=== PATIENT | female | born 1945 | race Caucasian/White ===

== ENCOUNTER 2025-07-10 19:21 | Inpatient (IN) | payer MEDICARE, OTHER, SELFPAY ==
[2025-07-10] VITALS (7 sets, daily range): BP systolic 94–135; BP diastolic 52–63; BMI 33.4
[2025-07-10 14:59] LABS: Hematocrit 40.9 % (37.0-47.0); Hemoglobin 14.0 g/dL (12.0-16.0); Mean Corp Hgb Conc. 34.2 g/dL (33.0-37.0); Mean Corpuscular Volume 89.7 fL (81.0-99.0); Nucleated Red Blood Cells % 0 %; Platelet Count 261 10^3/uL (130-400); Red Cell Dist. Width 12.5 % (11.5-14.5)
[2025-07-10 15:24] LABS: ALT (SGPT) 31 U/L (0-35); AST (SGOT) 46 U/L (14-36); Albumin 3.6 g/dl (3.5-5.0); Alkaline Phosphatase 203 U/L (38-126); Blood Urea Nitrogen 17 mg/dl (7-17); Calcium 9.1 mg/dl (8.4-10.2); Carbon Dioxide 24 mmol/L (22-30); Chloride 105 mmol/L (98-107); Glucose 170 mg/dl (70-99); Lipase 45 U/L (23-300); Potassium 3.7 mmol/L (3.5-5.1); Sodium 137 mmol/L (135-145); Total Protein 6.6 g/dl (6.3-8.2); eGFR > 60.00
--- NOTE | 2025-07-10 16:59 | ED.GENMED ---
History of Present Illness
<CLARENCE Cabrales - Last Filed: 07/10/25 23:41>
General
Chief Complaint: Fatigue
Source: patient
Exam Limitations: none
Time Seen by Provider: 07/10/25 16:52
Nursing documentation reviewed up to this point in time: agreed with
History of Present Illness
History of Present Illness:
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 She has had low-grade fevers as high as 101.3.
She denies any cough URI. She feels very sleepy and weak. She has had some small amounts of vomiting. No other sick contacts at home. She denies any abdominal pain.
Phy Exam
<CLARENCE Cabrales - Last Filed: 07/10/25 23:41>
General Physical Exam
General Presentation: no apparent distress
General age: appears stated age
General Skin: warm and dry
General Habitus: normal
General Mental: alert
General Hydration: appears well hydrated
Cardiovascular Exam
Cardiovascular Exam: regular rate/rhythm, no murmur and normal peripheral pulses
Pulmonary Exam
Pulmonary Exam: no respiratory distress and other (+ crackles b/l bases )
Gastrointestinal Exam
Gastrointestinal Exam: soft and other (tender ruq )
Neurological Exam
Neurological Exam: alert and oriented x3
Musculoskeletal Exam
Musculoskeletal Exam: full ROM
Skin Exam
Skin Exam: normal color and warm/dry
Psychiatric Exam
Psychiatric Exam: normal mood/affect
Course
<CLARENCE Cabrales - Last Filed: 07/10/25 23:41>
Orders/Labs/Results
Orders:
Orders
07/10/25 14:54
Complete Blood Count/With Diff Urgent
Comprehensive Metabolic Panel Urgent
Lipase Urgent
07/10/25 17:27
0.9% Sodium Chloride 500 ml [Nss] 500 ml IV BOLUS
07/10/25 17:50
COVID-19 Antigen Urgent
Source: Nasal Swab
UA Reflex to Culture [Urinalysis Reflex To Culture] Urgent
Date Specimen was Collected: 07/10/25
Time Specimen was Collected: 17:31
Urine Microscopic Reflex Cult Urgent
Influenza A+B Rapid Molecular Urgent
JOMAR Source: Nasal Swab
Specimen Description:
Urine Culture Urgent
JOMAR Source: U
Specimen Description:
Date Specimen was Collected: 07/10/25
Time Specimen was Collected: 17:31
07/10/25 17:58
Chest [CR Chest - 2 Views ] Urgent
Comment:
Reason For Exam: fever /weak/crackles b/l bases
07/10/25 18:56
CefTRIAXone [Rocephin] 1,000 mg IV NOW STA
07/10/25 19:06
Sterile Water [Sterile Water For Injection] 20 ml .ROUTE .STK-MED
07/10/25 19:10
Admit/Transfer Patient As Directed
Co-Sign Provider:
Level of Care: Inpatient admission
Assign to:: Medical/Surgical
Physician / Group: Snow
Diagnosis: Pyelonephritis
Reason for Hospitalization: Pyelonephritis
Expected length of stay greater than two midnights?: Yes
ELOS- Estimated Length of Stay in days: 2
I certify the patient meets the requirements for IP care: Yes
Code Status As Directed
Resuscitation Status: Full Code
PRN Pain Medication Management As Directed
May give lesser potent ordered pain med per pt: Yes
preference::
Protocol:: Medication orders for pain may be administered in a
manner that supports deferring to patient preference
when the pt is:
- Requesting an ordered lesser potent pain medication.
Least to most potent pain medications are defined
as: acetaminophen < NSAID < tramadol < opioids
(morphine, oxycodone, hydromorphone).
- Requesting a lesser dose of the same medication IF
ORDERED.
- Requesting a less intrusive route of administration
if both routes are prescribed by the provider (PO <
IV).
07/10/25 19:15
US Abdomen Complete/Upper Urgent
Comment:
Reason For Exam: upper abd pain /n/v /fever
07/10/25 21:21
Acetaminophen [Tylenol] 650 mg PO Q4HPRN PRN
07/10/25 22:58
Bisacodyl [Dulcolax] 10 mg RECTAL [id number] PRN
Docusate W/Senna [Senokot-S] 1 tablet PO BIDPRN PRN
Ondansetron Injectable [Zofran] 4 mg IV Q6HPRN PRN
Polyethylene Glycol Powder [Miralax] 17 grams PO DAILYPRN PRN
07/10/25 22:58
Activity As Directed
Activity Level: With Assistance
Vital Signs As Directed
Frequency: Per unit guidelines
Pulse Ox/spot Check [RESP] Routine
Quantity: 1
Pt Eval And Treat Routine
Activity Level: With Assistance
DX Deep Vein Thrombosis Video Routine
07/11/25 06:00
Complete Blood Count/No Diff IN AM
07/11/25 18:00
CefTRIAXone [Rocephin] 1,000 mg IV Q24H
Enoxaparin Sodium [Lovenox] 40 mg SC QPM
Abnormal Lab Results
07/10/25 07/10/25
14:54 17:50
WBC 17.9 H 10^3/uL
(4.8-10.8)
MPV 10.9 H fL
(7.4-10.4)
Abs Immat Gran (auto) 0.1 H 10^3/uL
(0-0.05)
Absolute Neuts (auto) 15.7 H 10^3/uL
(1.4-6.5)
Absolute Lymphs (auto) 0.8 L 10^3/uL
(1.2-3.4)
Absolute Monos (auto) 1.1 H 10^3/uL
(0.1-0.6)
Neutrophils % 87.3 H %
(42.2-75.2)
Lymphocytes % 4.4 L %
(20.5-51.1)
Glucose 170 H mg/dl
(70-99)
Total Bilirubin 2.0 H mg/dl
(0.2-1.3)
AST 46 H U/L
(14-36)
Alkaline Phosphatase 203 H U/L
(38-126)
Urine Ketones 3+ A
(Negative)
Ur Occult Blood Reflex 4+ A
(Negative)
Urine Bilirubin 1+ A
(Negative)
Urine Urobilinogen 3+ A
(Neg - 1+)
Leukocyte Esterase Rfl 2+ A
(Negative)
Urine RBC 3-6 A /HPF
(0-2)
Urine WBC (Reflex) 21-25 A /HPF
(0-5)
Urine Bacteria (Reflex) Moderate A
(Negative)
Urine Albumin (Reflex) 3+ A
(Neg - Trace)
07/10/25 14:54
07/10/25 14:54
Vital Signs
Initial and Last Documented VS:
Initial Vital Signs
Temp Pulse Resp BP Pulse Ox
98.1 F 87 18 102/61 91
07/10/25 14:40 07/10/25 14:40 07/10/25 14:40 07/10/25 14:40 07/10/25 14:40
Last Documented Vital Signs
Temp Pulse Resp BP Pulse Ox
98.4 F 76 16 135/63 93
07/10/25 23:15 07/10/25 23:15 07/10/25 23:15 07/10/25 23:15 07/10/25 23:15
Cold Rolling Supervisor consulted with Physician
Cold Rolling Supervisor consulted with physician?: Yes
Name of Physician Consulted: DR Mckeon
<Clive Mckeon MD - Last Filed: 07/11/25 00:43>
Orders/Labs/Results
Orders:
Orders
07/10/25 14:54
Complete Blood Count/With Diff Urgent
Comprehensive Metabolic Panel Urgent
Lipase Urgent
07/10/25 17:27
0.9% Sodium Chloride 500 ml [Nss] 500 ml IV BOLUS
07/10/25 17:50
COVID-19 Antigen Urgent
Source: Nasal Swab
UA Reflex to Culture [Urinalysis Reflex To Culture] Urgent
Date Specimen was Collected: 07/10/25
Time Specimen was Collected: 17:31
Urine Microscopic Reflex Cult Urgent
Influenza A+B Rapid Molecular Urgent
JOMAR Source: Nasal Swab
Specimen Description:
Urine Culture Urgent
JOMAR Source: U
Specimen Description:
Date Specimen was Collected: 07/10/25
Time Specimen was Collected: 17:31
07/10/25 17:58
Chest [CR Chest - 2 Views ] Urgent
Comment:
Reason For Exam: fever /weak/crackles b/l bases
07/10/25 18:56
CefTRIAXone [Rocephin] 1,000 mg IV NOW STA
07/10/25 19:06
Sterile Water [Sterile Water For Injection] 20 ml .ROUTE .STK-MED
07/10/25 19:10
Admit/Transfer Patient As Directed
Co-Sign Provider:
Level of Care: Inpatient admission
Assign to:: Medical/Surgical
Physician / Group: Snow
Diagnosis: Pyelonephritis
Reason for Hospitalization: Pyelonephritis
Expected length of stay greater than two midnights?: Yes
ELOS- Estimated Length of Stay in days: 2
I certify the patient meets the requirements for IP care: Yes
Code Status As Directed
Resuscitation Status: Full Code
PRN Pain Medication Management As Directed
May give lesser potent ordered pain med per pt: Yes
preference::
Protocol:: Medication orders for pain may be administered in a
manner that supports deferring to patient preference
when the pt is:
- Requesting an ordered lesser potent pain medication.
Least to most potent pain medications are defined
as: acetaminophen < NSAID < tramadol < opioids
(morphine, oxycodone, hydromorphone).
- Requesting a lesser dose of the same medication IF
ORDERED.
- Requesting a less intrusive route of administration
if both routes are prescribed by the provider (PO <
IV).
07/10/25 19:15
US Abdomen Complete/Upper Urgent
Comment:
Reason For Exam: upper abd pain /n/v /fever
07/10/25 21:21
Acetaminophen [Tylenol] 650 mg PO Q4HPRN PRN
07/10/25 22:58
Bisacodyl [Dulcolax] 10 mg RECTAL [id number] PRN
Docusate W/Senna [Senokot-S] 1 tablet PO BIDPRN PRN
Ondansetron Injectable [Zofran] 4 mg IV Q6HPRN PRN
Polyethylene Glycol Powder [Miralax] 17 grams PO DAILYPRN PRN
07/10/25 22:58
Activity As Directed
Activity Level: With Assistance
Vital Signs As Directed
Frequency: Per unit guidelines
Pulse Ox/spot Check [RESP] Routine
Quantity: 1
Pt Eval And Treat Routine
Activity Level: With Assistance
DX Deep Vein Thrombosis Video Routine
07/11/25 06:00
Complete Blood Count/No Diff IN AM
07/11/25 18:00
CefTRIAXone [Rocephin] 1,000 mg IV Q24H
Enoxaparin Sodium [Lovenox] 40 mg SC QPM
Abnormal Lab Results
07/10/25 07/10/25
14:54 17:50
WBC 17.9 H 10^3/uL
(4.8-10.8)
MPV 10.9 H fL
(7.4-10.4)
Abs Immat Gran (auto) 0.1 H 10^3/uL
(0-0.05)
Absolute Neuts (auto) 15.7 H 10^3/uL
(1.4-6.5)
Absolute Lymphs (auto) 0.8 L 10^3/uL
(1.2-3.4)
Absolute Monos (auto) 1.1 H 10^3/uL
(0.1-0.6)
Neutrophils % 87.3 H %
(42.2-75.2)
Lymphocytes % 4.4 L %
(20.5-51.1)
Glucose 170 H mg/dl
(70-99)
Total Bilirubin 2.0 H mg/dl
(0.2-1.3)
AST 46 H U/L
(14-36)
Alkaline Phosphatase 203 H U/L
(38-126)
Urine Ketones 3+ A
(Negative)
Ur Occult Blood Reflex 4+ A
(Negative)
Urine Bilirubin 1+ A
(Negative)
Urine Urobilinogen 3+ A
(Neg - 1+)
Leukocyte Esterase Rfl 2+ A
(Negative)
Urine RBC 3-6 A /HPF
(0-2)
Urine WBC (Reflex) 21-25 A /HPF
(0-5)
Urine Bacteria (Reflex) Moderate A
(Negative)
Urine Albumin (Reflex) 3+ A
(Neg - Trace)
07/10/25 14:54
07/10/25 14:54
Vital Signs
Initial and Last Documented VS:
Initial Vital Signs
Temp Pulse Resp BP Pulse Ox
98.1 F 87 18 102/61 91
07/10/25 14:40 07/10/25 14:40 07/10/25 14:40 07/10/25 14:40 07/10/25 14:40
Last Documented Vital Signs
Temp Pulse Resp BP Pulse Ox
98.4 F 76 16 135/63 93
07/10/25 23:15 07/10/25 23:15 07/10/25 23:15 07/10/25 23:15 07/10/25 23:15
<CLARENCE Cabrales - Last Filed: 07/10/25 23:41>
MDM/Problems Addressed
Differential Diagnosis Includes:
Not limited to viral syndrome, COVID influenza UTI pneumonia
MDM/Problems Addressed:
Patient is a 80-year-old female who presents for 4 days of intermittent weakness low-grade temperature of 101.3 intermittent nausea and vomiting. She denies any UTI symptoms however urine does appear infected. She has no URI symptoms COVID is
negative. She is slight crackles at bases however x-ray does read for atelectasis. No history of CHF. Her sugar is mildly elevated likely reactive. Her white count is mildly elevated along with her bilirubin AST and alk phosphatase. She denies
any abdominal pain during history however on exam she is tender in the right upper quadrant with fever nausea and vomiting and elevated LFTs will order ultrasound. no UTI s/s however urine does appear infected. Patient was evaluated by ED
physician.
will admit for hydration and antibiotics. US ordered and pending.
2330: Ultrasound concerning for acute cholecystitis. Admitting hospitalist made aware surgery made aware via [facility] text. IV Unasyn ordered as discussed with admitting hospitalist. Nurses on floor made aware by [facility] NURSE.
Chronic conditions affecting care:
Hyperlipidemia SVT
<CLARENCE Cabrales - Last Filed: 07/10/25 23:41>
*Radiology
Radiology exam reviewed: radiology read reviewed
*Pulse Oximetry
SaO2: 100
Oxygen Mode of Delivery: Room air
Patient hypoxic: no
*Critical Care Note
Total Time (30-74mins, 75-104mins- exclusive of procedures): Not Applicable
ED Attending Note
<CLARENCE Cabrales - Last Filed: 07/10/25 23:41>
-
Portions of this chart may have been created with voice recognition software.� Occasional wrong word or��sound alike� substitutions may have occurred due to the inherent limitations of voice recognition software.
<Clive Mckeon MD - Last Filed: 07/11/25 00:43>
ED Attending Note
Patient seen and examined by attending physician: Yes
ED Attending Note:
Patient presents to ED secondary to 4-day history of persistent vomiting, along with fever (101). Denies coughing. Denies chest pain. Denies shortness of breath. Denies diarrhea. Denies abdominal pain. Denies back pain. Denies urinary
frequency or urgency. Patient states that her friend is currently 'sick' and not feeling well. She is currently visiting her daughter from out of state.
Physical Exam
General: mild distress, not acutely ill. afebrile
Head: nc/at. eomi
Neck: supple. no meningeal signs.
Heart: s1/s2 regular rate and rhythm
Lungs: no acute respiratory distress. clear bilaterally
Abdomen: normal bowel sounds. mild epigastric/RUQ tenderness to palpation
Neuro: alert and oriented x 3. no focal neurological deficits
Skin: no rash
Psychiatric: well kept. interactive and cooperative
Extremities: no edema. no calf tenderness.
Blood work reviewed and discussed with patient. In light of abnormal LFTs along with upper abdominal pain, will obtain abdominal US to evaluate for potential biliary etiology
Ultrasound report noted. Admitting hospitalist made aware, including need for antibiotics and surgery/GI consultation.
Discharge Plan
Departure
Patient Disposition: Admit
Date of Disposition: 07/10/25
Time of Disposition: 18:58
Admit to doctor: hospitalist
Presentation/result/management discussed w/ accepting MD/DO: Hospitalist
Patient with high blood pressure during this ER visit?: No
Condition: Fair
Covid-19: Not Applicable
Discharge Problem:
Weakness, Acute UTI, Acute cholecystitis
Interventions
Interventions:
*Risk Screen - Suicide Last Done: 07/10/25 14:40
*General Assessment Last Done: 07/10/25 14:40
*Neglect/Abuse Screening Last Done: 07/10/25 17:29
*ED- Fall Risk Assessment Last Done: 07/10/25 17:29
*ED COVID-19 Vaccine History Last Done: 07/10/25 17:29
*Nursing Disposition Last Done: 07/10/25 23:06
Discharge Date and Time
Discharge Date/Time: 07/10/25 23:07
[2025-07-10] MEDS: NSS 500 IV (17:49)
[2025-07-10 18:04] LABS: Urine Character Slightly Cloudy (Clear)
[2025-07-10 18:16] LABS: COVID-19 Antigen Negative (Negative)
[2025-07-10 18:23] LABS: Urine White Cell 21-25 /HPF (0-5)
--- NOTE | 2025-07-10 19:05 | HPS.HSE ---
Family Physician
-
Family Physician: * NONE
Chief Complaint
-
Weakness and fatigue
History of Present Illness
This is a 80-year-old female with past medical history of hyperlipidemia and supraventricular tachycardia who presents to the emergency department with 4 days of fatigue and then 1 day of fever yesterday.
Patient is visiting from [place]. She been ingested about until 4 days ago when daughter reported that she has been feeling fatigued and weak. She has been having reduced appetite. She also has decreased stool output with constipation for the
last 2 days. Patient herself denies having any signs of UTI which she has had in the past. She denies dysuria, frequency urgency or incontinence. She denies any nausea or vomiting. She denies having any diarrhea. She denies abdominal pain.
Brought by that she complained of back pain which they initially thought. Her lumbar however patient reports that the pain is more right-sided and posterior thoracic. She reports as a constant ache without any sharp pain. She denies any shortness
of breath. She denies any URI symptoms including rhinorrhea nasal congestion sore throat headache or chest congestion.
He had a temperature of 101.3 tympanically yesterday. Resolved with Tylenol, has had low-grade temps to 99 since then. She did receive Tylenol today for generalized aches and pains secondary to her arthritis and history of bursitis.
She denies any rash. She denies any joint swelling erythema or decreased range of motion.
In the emergency department, patient was afebrile, blood pressure was 114/52 with a pulse rate of 73 and she was satting 100% on room air. Chest x-ray shows mild bibasilar opacities likely atelectasis. CBC shows a white count of 18 otherwise
unremarkable. Electrolytes BUN/creatinine were normal. UA shows positive leukocyte esterase and WBCs and bacteria but also squamous cells which could be contamination. Total bilirubin was elevated at 2.0 with AST of 46 and alk phos of 230.
Lipase was normal.
COVID test was negative. Influenza test was negative.
Medical History
Past Medical History
Past Medical History: Reports Hypercholesterolemia and Other (SVT)
Past Surgical History: Reports and Tonsilectomy
Social History
Tobacco: Non-smoker
Alcohol: None
Drug: None
Family History
Family History: Not pertinent
Allergies / Home Medications
Allergies reflects when Allergies were last updated in [employer].
Home Medications with original date entered in [employer]
Allergy/Medication List:
Allergies
Allergy/AdvReac Type Severity Reaction Status Date / Time
No Known Allergies Allergy Verified 07/10/25 14:39
Metoprolol succinate extended release 25 mg tablet, 12.5 mg p.o. twice daily
Rosuvastatin 5 mg tablet, 5 mg p.o. at bedtime
Review of Systems
-
Constitutional: Reports Fever
EENT: Reports No Symptoms
Respiratory: Reports No Symptoms
Cardiac: Reports No Symptoms
Abdomen/GI: Reports No Symptoms
: Reports No Symptoms
Musculoskeletal: Reports No Symptoms
Skin: Reports No Symptoms
Neurological: Reports No Symptoms
Endocrine: Reports No Symptoms
Hematologic/Lymphatic: Reports No Symptoms
Psych: Reports No Symptoms
Physical Exam
Vital Signs
Vital Signs
Temp Pulse Resp BP Pulse Ox
98.1 F 73 21 114/52 100
07/10/25 14:40 07/10/25 18:00 07/10/25 18:00 07/10/25 18:00 07/10/25 18:52
Physical Exam
General: Well Developed, Well Nourished and No Apparent Distress
HEENT: NormoCephalic, Moist mucous membranes and Atraumatic
Respiratory: Clear
Cardiac: S1/S2 and Regular Rhythm; No Murmur or Rub
GI: Soft, Non Distended, Normal Bowel Sounds and Tender (Right upper quadrant tenderness to palpation); No Organomegaly
Rectal: Deferred by Provider
Musculoskeletal: No Clubbing, No Cyanosis and No Edema
Skin: No Rash
Neuro: Nonfocal/grossly intact
Laboratory Results
-
07/10/25 14:54
07/10/25 14:54
Laboratory Results
Total Bilirubin 2.0 mg/dl (0.2-1.3) H 07/10/25 14:54
AST 46 U/L (14-36) H 07/10/25 14:54
ALT 31 U/L (0-35) 07/10/25 14:54
Alkaline Phosphatase 203 U/L (38-126) H 07/10/25 14:54
Lipase 45 U/L (23-300) 07/10/25 14:54
Data Reviewed
-
Diagnostic Radiology: Report Reviewed by me
Lab Data: Labs Reviewed by me
Old Records: Reviewed
Impression/Plan
-
IMPRESSION:
Generally healthy 80-year-old female here with fatigue and fever to 101.3 at home. Workup in the ED shows leukocytosis to 17.9 slight elevation in total bilirubin to 2.0 and alk phos 223. She had a chest x-ray which shows mild bibasilar opacities
felt to be atelectasis. She has no respiratory symptoms and is satting 100% on room air. On examination she did have right upper quadrant tenderness to palpation. She denies typical urinary symptoms at home and she has no findings on skin to
suggest cellulitis or joints to suggest joint infection. UA is positive at this time.
PLAN:
Fever fatigue and leukocytosis -suspect infection possibly pyelonephritis given the right sided pain but cannot rule out biliary process at this time
- admit to MedSurg
- Urine culture sent
- Blood cultures afebrile
- Right upper quadrant ultrasound
- Trend LFTs
- Diet as tolerated for now
- IV ceftriaxone
DVT PPX - lovenox sq
--- NOTE | 2025-07-10 19:08 | EDRN ---
Per verbal order of Dr. Mckeon give another 500ml of normal saline.
[2025-07-10] MEDS: ROCEPHIN 1000 MG IV (19:10)
[2025-07-10] MEDS: TYLENOL 650 MG PO (21:37)
[2025-07-11] VITALS (15 sets, daily range): BP systolic 25–123; BP diastolic 50–65; BMI 32.2
[2025-07-11] MEDS: LR 1000 IV ×2 (00:43→16:51)
[2025-07-11] MEDS: UNASYN IV ×4 (00:43→17:08)
[2025-07-11] MEDS: TOPROL XL 12.5 MG PO ×3 (00:45→21:50)
--- NOTE | 2025-07-11 01:31 | PTCARENOTE ---
Received pt from er,alert,oriented tolerated transfer well.Pt ambulated and pivoted to bed.VS taken pt is afebrile.Room air sat 93%,pt set up for her own CPAP. Pt physical assessment preformed,slight BLAIR,no cough.IVT initiated LR at 85 mls hour.Pt
sleeping after assessment .
[2025-07-11] MEDS: TYLENOL 650 MG PO (06:30)
[2025-07-11 07:43] LABS: Hematocrit 36.5 % (37.0-47.0); Hemoglobin 12.2 g/dL (12.0-16.0); Mean Corp Hgb Conc. 33.4 g/dL (33.0-37.0); Mean Corpuscular Volume 89.7 fL (81.0-99.0); Platelet Count 235 10^3/uL (130-400); Red Cell Dist. Width 12.6 % (11.5-14.5)
[2025-07-11 08:07] LABS: ALT (SGPT) 32 U/L (0-35); AST (SGOT) 38 U/L (14-36); Albumin 3.0 g/dl (3.5-5.0); Alkaline Phosphatase 254 U/L (38-126); Blood Urea Nitrogen 14 mg/dl (7-17); Calcium 8.2 mg/dl (8.4-10.2); Carbon Dioxide 25 mmol/L (22-30); Chloride 104 mmol/L (98-107); Estimated Creatinine Clearance 77 ml/min; Glucose 96 mg/dl (70-99); Potassium 3.4 mmol/L (3.5-5.1); Sodium 135 mmol/L (135-145); Total Protein 5.6 g/dl (6.3-8.2); eGFR > 60.00
--- NOTE | 2025-07-11 09:55 | CON.GS ---
Addendum entered and electronically signed by Werner De Santiago MD 07/11/25 11:08:
I saw and examined the patient independently.
The Chaplain Resident's note was reviewed and I agree with the note, assessment and plan except where noted below.
Comment: This is a 80-year-old female who presents with right upper quadrant pain and tenderness on exam. Exam, imaging, blood work all consistent with acute cholecystitis.
Will plan for laparoscopic cholecystectomy in the OR today.
N.p.o., IV fluids, IV antibiotics risks/Benefits/Alternatives, expected postoperative course and possible complications (bleeding, infection, injury to surrounding structures, acute/chronic pain) discussed at length. Patient wishes to proceed with
surgery. All questions answered. Consent obtained.
I spent 75 minutes in total for the care of this patient today including direct patient care and counseling, reviewing labs, imaging, coordination of care, as well as documentation.
Original Note:
Consultation
-
Date/Time Consultation Performed: 07/11/25914
Medical History
-
Chief Complaint: RUQ pain
History of Present Illness:
This is a 80 yo female with a h/o SVT and who resides in [place] but is visiting her daughter here in [place] who presents with reduced appetite, fatigue and right mid back pain progressing over the past few days with associated fever of
101.3 yesterday. She denies symptoms although UA was abnormal in the ED. Exam significant for RUQ tenderness present on exam. History is limited as patient is very anxious.
Past Medical History
Past Medical History: Arrhythmias (SVT) and Hypercholesterolemia
Past Surgical History: and Tonsilectomy
Social History
Tobacco: Non-Smoker
Alcohol: None
Family History
Family History: Reviewed & Not Pertinent
Allergies / Home Medications
Allergy/AdvReac Type Severity Reaction Status Date / Time
No Known Allergies Allergy Verified 07/10/25 14:39
�Medication �Instructions �Recorded �Confirmed �Type
metoprolol succinate 25 mg 12.5 mg PO BID Blood Pressure 07/10/25 07/10/25 History
tablet,extended release 24 hr
rosuvastatin 5 mg tablet 5 mg PO HS High Cholesterol 07/10/25 07/10/25 History
Review of Systems
-
History Source: Patient and Family
All other systems: Negative unless noted
A 10 point review of systems was completed, and was negative except as per HPI.
Physical Exam
Vital Signs
Temp Pulse Resp BP Pulse Ox
98.6 F 77 16 116/62 91
07/11/25 07:00 07/11/25 07:36 07/11/25 07:00 07/11/25 07:36 07/11/25 07:00
07/10/25 07/11/25 07/12/25
06:59 06:59 06:59
Actual Weight 82.5 kg
Body Mass Index (BMI) 32.2
Lab Results
07/11/25 06:52
07/11/25 06:52
WBC 15.4 10^3/uL (4.8-10.8) H 07/11/25 06:52
Hgb 12.2 g/dL (12.0-16.0) 07/11/25 06:52
Hct 36.5 % (37.0-47.0) L 07/11/25 06:52
Plt Count 235 10^3/uL (130-400) 07/11/25 06:52
Abs Immat Gran (auto) 0.1 10^3/uL (0-0.05) H 07/10/25 14:54
Neutrophils % 87.3 % (42.2-75.2) H 07/10/25 14:54
Physical Exam
General: Well Nourished
HEENT: Normocephalic
Respiratory: Non Labored Respirations
GI: Soft, Non Distended and Tender (RUQ)
Skin: Warm
Neuro: Awake, Alert and AO x 3
Psych: Other (anxious, tearful)
Data Reviewed
-
Ultrasound: Image Personally Visualized and interpreted, Report Reviewed by me, Discussed with Physician and Discussed with Patient
Labs: Labs Reviewed by me, Discussed with Physician and Discussed with Patient
Old Records: Reviewed
Assessment / Plan
-
80 yo female with a h/o SVT and who resides in [place] but is visiting her daughter here in [place] who presents with reduced appetite, fatigue and right mid back pain progressing over the past few days with associated fever of 101.3
yesterday. UA abnormal with Cx pending. Significant RUQ tenderness on exam with US imaging concerning for acute calculous cholecystitis. Leukocytosis present with wbc of 17.9 on presentation, trending down to 15.4 today on ABX. LFT's with elevated
bilirubin of 1.4 (down from 2 yesterday) with direct bilirubin of 0.5. AST and alk phos also elevated. Afebrile currently with stable vital signs.
Would recommend laparoscopic cholecystectomy with IOC. Discussed with patient and daughter. Patient agreeable to proceed.
Plan:
NPO for OR today
C/W IV ABX (Unasyn)
IVF while NPO
Medical management as per primary team
Case discussed with patient's daughter via telephone
--- NOTE | 2025-07-11 10:49 | W.PN.HOSP.TC ---
Today's Communication/Plan
-
EKG for preop eval
Placed on telemetry with a history of SVT
Continue with antibiotics
OR today per surgery
Assessment / Plan
Assessment / Plan
IMPRESSION:
Generally healthy 80-year-old female here with fatigue and fever to 101.3 at home. Workup in the ED shows leukocytosis to 17.9 slight elevation in total bilirubin to 2.0 and alk phos 223. She had a chest x-ray which shows mild bibasilar opacities
felt to be atelectasis. She has no respiratory symptoms and is satting 100% on room air. On examination she did have right upper quadrant tenderness to palpation. She denies typical urinary symptoms at home and she has no findings on skin to
suggest cellulitis or joints to suggest joint infection. UA is positive at this time.
PLAN:
Fever fatigue and leukocytosis
Also had a right upper quadrant pain and tenderness with ultrasound findings raising concern for acute cholecystitis with a gallbladder wall thickening, pericholecystic edema, gallbladder sludge, and gallstone in the neck of the gallbladder.
Abnormal LFTs noted.
Clinical concern for acute cholecytsitis.
Denies dysuria, freq of urine,
- Keep n.p.o., continue with empiric antibiotics.
- Appreciate surgical input-plan for OR today for lap cholecystectomy noted. IOC is consider intraoperatively.
- Urine culture sent
- Blood cultures pending
- Trend LFTs
- Diet as tolerated for now
- Continue ampicillin
Pancreatic head hypoechoic mass-would need MRI with contrast at some point to evaluate further.
History of SVT-continue metoprolol
Bilateral basal crackles with chest x-ray raising concern for atelectasis-clinically not concerning for pneumonia. No respiratory symptoms nor cough.
Continue with ICS.
Preop cardiac eval-patient with no clinical risk factor. METS more than 4. Check an EKG and if normal proceed with ORS planned.
Discussed with daughter at bedside
DVT PPX - lovenox sq
Total time spent on today's encounter was 52 minutes which included time spent in counseling the patient/family regarding diagnosis and treatment plan as listed above, goals of care, and symptom management. Case was discussed with nursing staff,
specialists, and care coordinators/case management. All labs and imaging personally reviewed by me. Remainder the time spent in detailed review of previous records, lab data, imaging, and other medical provider documentation.
Anticipated Discharge: 24 - 48 hours
Subjective/Interval History
-
Date of Service: July 11, 2025
Still in pain - it is now in RUQ -got intensified now.
Not SOB or having CP. No cough.
Denies prior history of UT. She has prior history of SVT on beta-yumiko.
No history of strokes. No diabetes. Non-smoker.
Can walk mile without any trouble with shortness of breath or chest pain. Independent ADLs.
She can go up a flight of stairs without SOB or CP. Does her own house work.
Objective Data
-
Labs:
Laboratory Results
07/11/25
06:52
WBC 15.4 H
Hgb 12.2
Hct 36.5 L
Plt Count 235
Sodium 135
Potassium 3.4 L
Chloride 104
Carbon Dioxide 25
BUN 14
Creatinine 0.6
Glucose 96
Calcium 8.2 L
Total Bilirubin 1.4 H
AST 38 H
ALT 32
Alkaline Phosphatase 254 H
Vital Signs:
Vital Signs
Temp Pulse Resp BP Pulse Ox
98.6 F 77 16 116/62 91
07/11/25 07:00 07/11/25 07:36 07/11/25 07:00 07/11/25 07:36 07/11/25 07:00
I&O
07/10/25 07/11/25 07/12/25
06:59 06:59 06:59
Intake Total 480 / 480
Output Total 500 / 500
Balance 480 / 480 -500 / -500
Physical Exam
-
General: Negative Comfortable (due to pain)
Respiratory: Crackles (bibasal) and Non Labored Respirations; Negative Wheezes or Accessory Resp Muscle Use
Cardiac: Regular Rhythm and S1/S2; Negative Murmur or Tachycardic
GI: Soft, Nondistended, Normal Bowel Sounds and Tender (RUQ)
Neuro: AO x 3
Psych: Calm; Negative Confused
Data Reviewed
-
Ultrasound: Report Reviewed by me (abdomen)
Labs: Labs Reviewed by me
--- NOTE | 2025-07-11 11:06 | W.SUR.PREOP ---
Pre-Operative Surgical Note
-
I have examined this patient prior to the performance of the scheduled procedure.
The patient's condition is unchanged from the time of the current History and
Physical and the patient is able to undergo the scheduled procedure.
--- NOTE | 2025-07-11 14:07 | W.PN.UPDATE ---
Update Note
Progress Note Update
Preop EKG shows sinus rhythm with elevated QRS and nonspecific T wave abnormalities.
Patient has a prior EKG from 06/25/2024 which showed nonspecific T wave changes as well. No obvious new changes or acute changes noted.
Proceed with surgery as planned.
--- NOTE | 2025-07-11 15:19 | W.IMMPOSTOP ---
Surgical Immed Post Op Note
-
Primary Surgeon: Werner De Santiago MD
Assisting Surgeon: None
Pre-op Diagnosis: Acute cholecystitis
Post-op Diagnosis: Gangrenous perforated cholecystitis, choledocholithiasis
Procedure Performed:
1. Laparoscopic cholecystectomy with cholangiogram
2. Drainage of an intra-abdominal abscess
Anesthesia Type: General
Specimen / Cultures:
1. Gallbladder and contents
2. Right upper quadrant abscess for culture
Estimated Blood Loss: 11 cc
Complications: None
Operative Findings: Markedly distended and inflamed gallbladder with thick surrounding adhesions, localized perforation of the gallbladder identified with lyn pus and spillage in the right upper quadrant which was suctioned up and cultured. The
infundibulum of the gallbladder was densely adhered to the surrounding tissues so we elected to do a top-down subtotal cholecystectomy, a very large gallstone was identified in the infundibulum and removed. The cystic duct was identified and
intubated with a cholangiocatheter and a cholangiogram was performed which showed significant amount of choledocholithiasis, not amenable to transcystic exploration/removal. The cystic duct ostium was suture-ligated closed using a 3-0 silk suture.
The remainder of the gallbladder was removed off of the fossa and the back wall was fulgurated. Floseal was applied over the surgical field and after copious irrigation, hemostasis was assured. A 19 Persian round Dong drain was introduced through
the right lateralmost port passed across the field and secured to the skin with a 2-0 nylon suture.
POST OP PLAN:
Imaging: None
Labs: Routine AM
Diet: N.p.o.
Analgesia: Tylenol 650mg q6 Bran, Dilaudid 0.5mg q2h PRN
Neuro/vascular checks: Per unit protocol
AC/AP: Hold Therapeutic AC, Ok for DVT PPx
Activity: Ad Rosalee
Wound/Incisions/Drains: Routine, THAIS to bulb suction
Abx: Continue antibiotics time 7 days
Dispo: RNF, she will need an ERCP for removal of her stones, anticipate placement of a stent given the limited ability to ligate the cystic duct.
--- NOTE | 2025-07-11 15:33 | OR.RPT ---
Operative Report
Operative Report
Patient Name: Kaleigh Johnson
: 1945
Date of Operation: 07/11/2025
Preoperative Diagnosis: Acute cholecystitis
Postoperative Diagnosis: Gangrenous perforated cholecystitis, right upper quadrant abscess, choledocholithiasis
Procedure(s):
1. Laparoscopic Cholecystectomy with Cholangiogram
2. Drainage of an intra-abdominal right upper quadrant abscess
Surgeon(s):
Dr. De Santiago
Clinical Rn Manager(s):
TAMICA Rodrigez
Anesthesia: General
Estimated Blood Loss: 11 cc
Urine Output: None
Drains/Lines/Implants: 19 Citizen [place] round Dong drain
Specimens:
1. Gallbladder and contents
2. Right upper quadrant abscess for culture
HPI/Surgical Indications:
This is a 80-year-old female visiting her family from [place] who presents with a reported 2 days of upper abdominal pain. Exam, labs and imaging are consistent with acute cholecystitis. Risks/Benefits/Alternatives were discussed at length, and
the patient agreed reluctantly to proceed with surgery.
Operative Findings: Markedly distended and inflamed gallbladder with thick surrounding adhesions, localized perforation of the gallbladder identified with lyn pus and spillage in the right upper quadrant which was suctioned up and cultured. The
infundibulum of the gallbladder was densely adhered to the surrounding tissues so we elected to do a top-down subtotal cholecystectomy, a very large gallstone was identified in the infundibulum and removed. The cystic duct was identified and
intubated with a cholangiocatheter and a cholangiogram was performed which showed significant amount of choledocholithiasis, not amenable to transcystic exploration/removal. The cystic duct ostium was suture-ligated closed using a 3-0 silk suture.
The remainder of the gallbladder was removed off of the fossa and the back wall was fulgurated. Floseal was applied over the surgical field and after copious irrigation, hemostasis was assured. A 19 [place] round Dong drain was introduced through
the right lateralmost port passed across the field and secured to the skin with a 2-0 nylon suture.
Procedure Description:
The patient was brought to the Operating Room and placed in the supine position with one arm tucked. Following uneventful induction of general endotracheal anesthesia, an orogastric tube was placed. The abdomen was prepped and draped in the usual
sterile fashion. A timeout was performed confirming the procedure, consent, and that IV antibiotics were infused and sequential compression devices were confirmed to be on. The abdomen was entered using a left subcostal Veress technique which
required a single pass followed by a 5 mm right upper quadrant Optiview trocar. Pneumoperitoneum to 15 mmHg pressure was obtained without difficulty and we confirmed that no injury had occurred during our entry. The patient was positioned in
reverse Trendelenberg and rotated with the right side up slightly. Two 5 mm trocars were then placed along the right subcostal margin, followed by a 12 mm port in the epigastrium. Initially, the gallbladder could hardly be visualized as the colon
and the surrounding fat was plastered over the gallbladder. There was significant inflammation in the right upper quadrant concerning for localized peritonitis. Carefully the tissue surrounding the gallbladder re peeled down, there was a sudden
gush of white creamy pus which was quickly suctioned up. A 4 x 4 Ray-Indio was inserted to help assist with mopping up the infected fluid. A locking grasping forceps was placed on the fundus of the gallbladder where it was then retracted cephalad and
to the right. We attempted to dissect down to the infundibulum however the scar tissue to the surrounding duodenum was significant so we elected to do a top-down cholecystectomy. Using a laparoscopic bipolar energy device the macdonald of the
gallbladder were taken down towards the infundibulum. There was a large brown stone in the infundibulum that was removed. The ostium of the cystic duct was not immediately identified but after some careful dissection a candidate was identified and
then carefully cannulated with a cholangiocatheter. A C-arm was draped and brought into the field. An intraoperative cholangiogram was performed and noted to have:
Numerous filling defects in the biliary tree
Significant biliary dilation
Nevertheless, there was flow of contrast into the duodenum
Her biliary anatomy was otherwise normal
The catheter was then removed. As the cystic duct could not be isolated elected to attempt closing it using suture. A 3-0 silk suture was used to close the ostium of the cystic duct. The remainder of the gallbladder was removed and placed into
the Endo Catch bag along with the gallstone. This and the 4 x 4 Ray-Indio were then removed. The right upper quadrant was then flooded with saline and suctioned until clear and that no visualized gallstones remained behind. A 19 [place] round Dong
drain was introduced through the right lateralmost port passed across our field and secured to the skin with a 2-0 nylon suture. Although hemostasis was achieved with the help of the LigaSure bipolar device and the back of the gallbladder wall was
fulgurated Floseal was also placed as an adjunct hemostatic agent. All remaining trocars were then removed and the pneumoperitoneum was evacuated. The 12 mm trocar site was closed using 0 PDS suture. All trocar sites were closed at the skin level
using 4-0 Monocryl followed by Dermabond. Overall, the patient tolerated the procedure well and was taken to the Recovery Room postoperatively in stable condition.
I was the attending physician and performed the procedure with assistance from the GLUED WOOD TESTER and PA student above. I was present for all portions of the case, excluding skin closure.
Werner De Santiago MD
[2025-07-11] MEDS: DILAUDID 0.25 MG IV ×2 (15:47→22:24)
--- NOTE | 2025-07-11 15:55 | CM ---
Alert awake oriented patient who lives alone and was visiting dgt and became ill. Her home is 1 story with 4 steps to enter. Pt is for surgery and will be staying with dgt locally with 4 steps to enter and can live on first floor.She has CPAP with
Air flow and uses a cane as needed.
No VN / SNF hx
Pharmacy [facility]
PCP Dr Adeline Lopez [phone] or [phone] in [facility]
PLAN Will need PT OT postop for dc planning.
[2025-07-11] MEDS: DILAUDID 0.5 MG IV (16:11)
--- NOTE | 2025-07-11 16:40 | CON.GI ---
Addendum entered and electronically signed by Ashleigh Nix MD 07/11/25 18:08:
I saw and examined the patient.
The MICROCHIP SPECIALIST's note was reviewed and I agree with the note.
Comment: This is a 80-year-old female with past medical history as listed below from [place] who was visiting her daughter locally presented to the ER yesterday with symptoms of abdominal pain and fever and was noted to have acute cholecystitis
she had cholecystectomy and drainage of intra-abdominal abscess today and IOC which showed multiple CBD stones and we were consulted for ERCP. She has mildly elevated LFTs and overall feels pretty good postop and currently has no nausea or
vomiting. On ultrasound she was also noted to have a 1.5 cm pancreatic cyst.
Assessment and plan acute cholecystitis status post cholecystectomy and drainage of intra-abdominal abscess also noted to have multiple CBD stones on IOC and also on ultrasound was noted to have 1.5 cm pancreatic cyst. Will schedule for ERCP
tomorrow with Dr. Vallejo plus or minus EUS for the pancreatic cyst or she can also follow-up with her GI in [place] for outpatient MRI with MRCP and then EUS if needed there.
Original Note:
Consultation
-
Date/Time Consultation Requested: 07/11/25 1630
Date/Time Consultation Performed: 07/11/25 1640
Requesting Provider: CLARENCE Gauthier
Performing Provider: CLARENCE River, Ashleigh Nix MD
Medical History
Chief Complaint / HPI
History of Present Illness:
Pt is a 80yo with hx SVT, hypercholesterolemia, colon polyp, GERD, constipation, , tonsillectomy presents to ER 07/10 with fatigue, fever, decreased appetite and RUQ pain. Labs on admission noted with elevated WBC 17,900, bili 2, AST 46,
ALT 31, alk phos 203, lipase 45. Us completed on admission with acute cholecystitis. 8 mm CBD and hypoechoic 1.5 cm mass in panc head. Pt went for lap emperatriz today and drainage of intraabdominal abscess. cholangiogram with + choledocholithiasis
asked to see for ERCP. In review with patient and family she had episode of recent fatigue. She thought it may just be a viral issues but also had some increased GERD. She now started with fever and worsening fatigue this week. No hx pancreatic
issues or known pancreatic cysts in past.
She admits to some abdominal pain on admission with palpation but some worsening pain post-op. She also admits to constipation. She denies dysphagia, nausea, vomiting, diarrhea, change or stool or urine color or rectal bleeding. No hx EGD and
prior colonoscopy 1-2 years ago with polyps. No anticoagulation use but + daily NSAID use for arthritis prior to admission.
Past Medical History
Past Medical History: Arrhythmias (SVT), Hypercholesterolemia and Other (arthritis, constipation, colon polyps)
Past Surgical History: and Tonsilectomy
Social History
Tobacco: Non-Smoker
Alcohol: Occasional
Drug: None
Living: Alone
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
Family History
Family History: Other (father with gallbladder problems, maternal uncle with pancreatic CA)
Allergies / Home Medications
Allergy/AdvReac Type Severity Reaction Status Date / Time
No Known Allergies Allergy Verified 07/10/25 14:39
�Medication �Instructions �Recorded
metoprolol succinate 25 mg 12.5 mg PO BID Blood Pressure 07/10/25
tablet,extended release 24 hr
rosuvastatin 5 mg tablet 5 mg PO HS High Cholesterol 07/10/25
Review of Systems
-
History Source: Patient and Family (daughter at bedside )
Constitutional: Reports Fever and Fatigue
EENT: Reports No Symptoms
Respiratory: Reports Trouble Breathing (at times with prior work up with PCP)
Cardiac: Reports No Symptoms
Abdomen/GI: Reports Abdominal Pain and Constipated
: Reports No Symptoms
Musculoskeletal: Reports Joint Pain
Skin: Reports No Symptoms
Neurological: Reports Weakness
Endocrine: Reports No Symptoms
Hematologic/Lymphatic: Reports No Symptoms
Vital Signs
Temp Pulse Resp BP Pulse Ox
97.6 F 69 12 113/57 95
07/11/25 16:35 07/11/25 16:30 07/11/25 16:30 07/11/25 16:30 07/11/25 16:30
Physical Exam
Exam
General: Well Developed, Well Nourished and Other (some pain post--op )
HEENT: Normocephalic and Other (mild jaundice )
Respiratory: Clear
Cardiac: Regular Rhythm
GI: Soft, Tender (diffuse with minimal palpation post-op), Distended (minimal ) and Other (surgical incision intact , THAIS drain with some serous drainage )
Musculoskeletal: No Clubbing and No Cyanosis
Skin: Warm and Dry
Neuro: Awake, Alert and AO x 3
Psych: Calm
Results
WBC 15.4 10^3/uL (4.8-10.8) H 07/11/25 06:52
Hgb 12.2 g/dL (12.0-16.0) 07/11/25 06:52
Hct 36.5 % (37.0-47.0) L 07/11/25 06:52
MCV 89.7 fL (81.0-99.0) 07/11/25 06:52
Plt Count 235 10^3/uL (130-400) 07/11/25 06:52
Absolute Neuts (auto) 15.7 10^3/uL (1.4-6.5) H 07/10/25 14:54
Sodium 135 mmol/L (135-145) 07/11/25 06:52
Potassium 3.4 mmol/L (3.5-5.1) L 07/11/25 06:52
Chloride 104 mmol/L (98-107) 07/11/25 06:52
Carbon Dioxide 25 mmol/L (22-30) 07/11/25 06:52
BUN 14 mg/dl (7-17) 07/11/25 06:52
Creatinine 0.6 mg/dL (0.6-1.0) 07/11/25 06:52
Calcium 8.2 mg/dl (8.4-10.2) L 07/11/25 06:52
Total Bilirubin 1.4 mg/dl (0.2-1.3) H 07/11/25 06:52
AST 38 U/L (14-36) H 07/11/25 06:52
ALT 32 U/L (0-35) 07/11/25 06:52
Alkaline Phosphatase 254 U/L (38-126) H 07/11/25 06:52
Lipase 45 U/L (23-300) 07/10/25 14:54
Diagnostic Image Results:
07/10/25 US Abdomen Complete/Upper
Sonographic features of the gallbladder suspicious for acute cholecystitis. Negative sonographic Santacruz sign. Unknown pain medication status. Clinical correlation recommended.
8 mm common bile duct, which may be within normal limits given patient age. However, recommend correlation with liver function tests.
Hypoechoic mass measuring up to 1.5 cm suggested in the region of the pancreatic head. Further evaluation with MRI recommended.
Prior GI Procedures:
EGD: none
Colonoscopy: last 1-2 years ago with polyps
Assessment / Plan
-
Pt is a 80yo with hx SVT, hypercholesterolemia, colon polyp, GERD, constipation, , tonsillectomy presents to ER 07/10 with fatigue, fever, decreased appetite and RUQ pain. Labs on admission noted with elevated WBC 17,900, bili 2, AST 46,
ALT 31, alk phos 203, lipase 45. Us completed on admission with acute cholecystitis. 8 mm CBD and hypoechoic 1.5 cm mass in panc head. Pt went for lap emperatriz today and drainage of intraabdominal abscess. cholangiogram with +
choledocholithiasis asked to see for ERCP. In review with patient and family she had episode of recent fatigue. She thought it may just be a viral issues but also had some increased GERD. She now started with fever and worsening fatigue this week.
No hx pancreatic issues or known pancreatic cysts in past. She admits to some abdominal pain on admission with palpation but some worsening pain post-op. She also admits to constipation. No hx EGD and prior colonoscopy 1-2 years ago with
polyps. No anticoagulation use but + daily NSAID use for arthritis prior to admission.
-extensive choledocholithiasis with biliary obstruction
-s/p lap emperatriz with drainage of intraabdominal abscess
-US with 1.5cm hypoechoic mass in panc head
-leukocytosis
-recent fatigue prior to admission
other med problems:
-hx SVT on Metoprolol
-arthritis on daily NSAIDs
- hypercholesterolemia
-colon polyp
- GERD
- constipation
-
-tonsillectomy
-father with hx emperatriz and materal uncle with panc CA
PLAN:
pt with + IOC with extensive choledocholithiasis-- will need need ERCP -- tentative for 07/12
will also review US with Dr. Vallejo-- for possible EUS vs MRI when improved -- I reviewed concern for panc lesion with patient and daughter and noted US findings
reviewed risk/benefit of procedure
trend labs
ok for sips clears NPO in AM
hold Lovenox, cont compression stocking
cont antibiotics -- monitor fever
pain control per hospitalist
all questions answered
per pt and family plan for pt to stay in [place] for a few weeks for recovery
-
-
Thank you for consultation and allowing me to participate in the patient's care. Please call the [employer] consultant GI physician during the after hours with any questions or concerns.
[2025-07-11] MEDS: CRESTOR 5 MG PO (17:06)
[2025-07-12] VITALS (10 sets, daily range): BP systolic 104–126; BP diastolic 52–64; PULSE 63; O2SAT 93
[2025-07-12] MEDS: UNASYN IV ×5 (00:07→23:49)
[2025-07-12] MEDS: LR 1000 IV ×3 (05:33→23:49)
[2025-07-12] MEDS: DILAUDID 0.25 MG IV ×3 (05:41→15:11)
[2025-07-12] MEDS: TYLENOL 650 MG PO ×2 (05:42→17:06)
[2025-07-12 07:54] LABS: INR 1.25; PT 16.0 Sec (11.4-14.6)
[2025-07-12 07:56] LABS: Hematocrit 36.9 % (37.0-47.0); Hemoglobin 12.3 g/dL (12.0-16.0); Mean Corp Hgb Conc. 33.3 g/dL (33.0-37.0); Mean Corpuscular Volume 92.7 fL (81.0-99.0); Platelet Count 264 10^3/uL (130-400); Red Cell Dist. Width 12.8 % (11.5-14.5)
[2025-07-12] MEDS: TOPROL XL 12.5 MG PO ×2 (08:09→21:11)
[2025-07-12 08:16] LABS: ALT (SGPT) 38 U/L (0-35); AST (SGOT) 40 U/L (14-36); Albumin 2.9 g/dl (3.5-5.0); Alkaline Phosphatase 307 U/L (38-126); Blood Urea Nitrogen 15 mg/dl (7-17); Calcium 8.0 mg/dl (8.4-10.2); Carbon Dioxide 26 mmol/L (22-30); Chloride 104 mmol/L (98-107); Estimated Creatinine Clearance 77 ml/min; Glucose 146 mg/dl (70-99); Potassium 3.7 mmol/L (3.5-5.1); Sodium 138 mmol/L (135-145); Total Protein 5.4 g/dl (6.3-8.2); eGFR > 60.00
--- NOTE | 2025-07-12 09:15 | W.PN.GS2 ---
Today's Communication / Plan
-
Appreciate GI consult and evaluation for ERCP given extensive choledocholithiasis. Given that the cystic duct was controlled with suture ligation and at risk for leak, discussed with the GI team placement of a temporary stent.
Continue IV antibiotics x 7 days, follow-up cultures.
Pain control.
Out of bed and ambulate as able.
N.p.o. for procedure today, diet per GI postoperatively.
IV fluids
Continue to trend CMP and CBC.
General surgery will continue to follow peripherally.
Assessment / Plan
-
This is a 80-year-old female postoperative day 1 from a laparoscopic cholecystectomy with cholangiogram for acute perforated cholecystitis with right upper quadrant abscess and significant choledocholithiasis. Overall doing well, expected
postoperative course.
Appreciate GI consult and evaluation for ERCP given extensive choledocholithiasis. Given that the cystic duct was controlled with suture ligation and at risk for cystic duct stump leak, discussed with the GI team placement of a temporary CBD stent.
Continue IV antibiotics x 7 days, follow-up cultures.
Pain control.
Out of bed and ambulate as able.
N.p.o. for procedure today, diet per GI postoperatively.
IV fluids
Continue to trend CMP and CBC.
Continue THAIS to bulb suction. She will likely be discharged home with this drain, appreciate drain teaching by nursing.
General surgery will continue to follow peripherally.
Time Spent
Total Time Spent with Patient (in minutes): 20
Subjective Data
-
Date of Service: July 12, 2025
Interval Events:
No acute events overnight. Slept well. Pain Controlled. Denies Nausea/Vomiting, +bowel function. Tolerating diet.
Objective Data
-
Intake and Output
07/11/25 07/12/25 07/13/25
06:59 06:59 06:59
Intake Total 480 / 480 570 / 570
Output Total 1013 / 1013
Balance 480 / 480 -443 / -443
Intake:
Oral fluids 480 / 480
IV fluids (Total) 450 / 450
Normosol 150 / 150
IV piggybacks 120 / 120
Output:
Drain Output (Total)
Right Lower Abdomen John-
Epps
Urine, Voided 950 / 950
Other:
How many times incontinent 1
SATURATED amount urine
Number of approximated LARGE 1
amounts of urine
Vital Signs
Temp Pulse Resp BP Pulse Ox
97.5 F 64 18 124/57 93
07/12/25 07:00 07/12/25 08:09 07/12/25 07:00 07/12/25 08:09 07/12/25 07:00
Lab Results
07/12/25 06:38
07/12/25 06:38
Calcium 8.0 mg/dl (8.4-10.2) L 07/12/25 06:38
Total Bilirubin 0.9 mg/dl (0.2-1.3) 07/12/25 06:38
Direct Bilirubin 0.5 mg/dl (0.0-0.4) H 07/11/25 06:52
AST 40 U/L (14-36) H 07/12/25 06:38
ALT 38 U/L (0-35) H 07/12/25 06:38
Alkaline Phosphatase 307 U/L (38-126) H 07/12/25 06:38
Total Protein 5.4 g/dl (6.3-8.2) L 07/12/25 06:38
Albumin 2.9 g/dl (3.5-5.0) L 07/12/25 06:38
Physical Exam
-
GENERAL/NEURO: Awake, Alert, no distress
CHEST: Unlabored breathing on RA
ABDOMEN: Soft, Non-Tender, Non-Distended, incisions clean dry and intact. THAIS with light serosanguineous output.
Patient has a marte catheter: No
Patient has a central line: No
--- NOTE | 2025-07-12 09:30 | W.PN.GI.CBS2 ---
Addendum entered and electronically signed by CLARENCE Rai 07/12/25 16:51:
reviewed with Dr. Nix and patient risk benefit of ERCP today vs waiting. She is agreeable to proceed and plan for MRI when able.
Original Note:
Today's Communication / Plan
-
pt with + IOC with extensive choledocholithiasis-- will need need ERCP -- tentative for today-- pending schedule
reviewed with Dr. Vallejo would like MRI prior to EUS will add with sedation prior
reviewed risk/benefit of procedure
cont LFT elevation
NPO for possible ERCP today
hold Lovenox, cont compression stocking
cont antibiotics -- monitor fever
pain control per hospitalist
all questions answered
per pt and family plan for pt to stay in [place] for a few weeks for recovery
Assessment / Plan
-
Pt is a 80yo with hx SVT, hypercholesterolemia, colon polyp, GERD, constipation, , tonsillectomy presents to ER 07/10 with fatigue, fever, decreased appetite and RUQ pain. Labs on admission noted with elevated WBC 17,900, bili 2, AST 46,
ALT 31, alk phos 203, lipase 45. Us completed on admission with acute cholecystitis. 8 mm CBD and hypoechoic 1.5 cm mass in panc head. Pt went for lap emperatriz today and drainage of intraabdominal abscess. cholangiogram with +
choledocholithiasis asked to see for ERCP. In review with patient and family she had episode of recent fatigue. She thought it may just be a viral issues but also had some increased GERD. She now started with fever and worsening fatigue this week.
No hx pancreatic issues or known pancreatic cysts in past. She admits to some abdominal pain on admission with palpation but some worsening pain post-op. She also admits to constipation. No hx EGD and prior colonoscopy 1-2 years ago with
polyps. No anticoagulation use but + daily NSAID use for arthritis prior to admission.
-extensive choledocholithiasis with biliary obstruction
-s/p lap emperatriz with drainage of intraabdominal abscess
-US with 1.5cm hypoechoic mass in panc head
-leukocytosis
-recent fatigue prior to admission
other med problems:
-hx SVT on Metoprolol
-arthritis on daily NSAIDs
- hypercholesterolemia
-colon polyp
- GERD
- constipation
-
-tonsillectomy
-father with hx emperatriz and materal uncle with panc CA
PLAN:
pt with + IOC with extensive choledocholithiasis-- will need need ERCP -- tentative for today-- pending schedule
reviewed with Dr. Vallejo would like MRI prior to EUS will add with sedation prior
reviewed risk/benefit of procedure
cont LFT elevation
NPO for possible ERCP today
hold Lovenox, cont compression stocking
cont antibiotics -- monitor fever
pain control per hospitalist
all questions answered
per pt and family plan for pt to stay in [place] for a few weeks for recovery
Subjective
Subjective
Date of Service: July 12, 2025
still with some pain but better than yesterday 07/11 brown stool
Objective
Data Reviewed
Laboratory Data:
Laboratory Results
07/12/25 06:38
07/12/25 06:38
Laboratory Results
PT 16.0 Sec (11.4-14.6) H 07/12/25 06:38
INR 1.25 07/12/25 06:38
Total Bilirubin 0.9 mg/dl (0.2-1.3) 07/12/25 06:38
AST 40 U/L (14-36) H 07/12/25 06:38
ALT 38 U/L (0-35) H 07/12/25 06:38
Alkaline Phosphatase 307 U/L (38-126) H 07/12/25 06:38
Lipase 45 U/L (23-300) 07/10/25 14:54
Vital Signs and I&O:
Vital Signs
Temp Pulse Resp BP Pulse Ox
97.5 F 64 18 124/57 93
07/12/25 07:00 07/12/25 08:09 07/12/25 07:00 07/12/25 08:09 07/12/25 07:00
I&O
07/11/25 07/12/25 07/13/25
06:59 06:59 06:59
Intake Total 480 / 480 570 / 570
Output Total 1013 / 1013
Balance 480 / 480 -443 / -443
Physical Exam
Physical Exam
HEENT: Anicteric and Moist mucous membranes
Cardiology: Normal Sinus Rhythm
Pulmonary: Clear
GI: Soft, Non Distended and Tender (mild)
Extremities: No Edema
Neuro: Non Focal
--- NOTE | 2025-07-12 10:29 | W.PN.HOSP.TC ---
Today's Communication/Plan
-
Continue IV fluids. Continue with IV antibiotics.
For MRI of the abdomen today
For ERCP today
Assessment / Plan
Assessment / Plan
IMPRESSION:
Generally healthy 80-year-old female here with fatigue and fever to 101.3 at home. Workup in the ED shows leukocytosis to 17.9 slight elevation in total bilirubin to 2.0 and alk phos 223. She had a chest x-ray which shows mild bibasilar opacities
felt to be atelectasis. She has no respiratory symptoms and is satting 100% on room air. On examination she did have right upper quadrant tenderness to palpation. She denies typical urinary symptoms at home and she has no findings on skin to
suggest cellulitis or joints to suggest joint infection. UA is positive at this time.
PLAN:
Fever fatigue and leukocytosis
Also had a right upper quadrant pain and tenderness with ultrasound findings raising concern for acute cholecystitis with a gallbladder wall thickening, pericholecystic edema, gallbladder sludge, and gallstone in the neck of the gallbladder.
Abnormal LFTs noted.
Clinical concern for acute cholecytsitis.
Status post lap cholecystectomy yesterday-findings showed gangrenous gallbladder with perforation. Specimens were collected. Continue with penicillin with improving white count.
Choledocholithiasis noted on IOC
- Keep n.p.o., continue with empiric antibiotics.
- Plan for ERCP and MR noted. Appreciate GI input.
Pancreatic head hypoechoic mass-MRI of the abdomen in works.
History of SVT-continue metoprolol
Bilateral basal crackles with chest x-ray raising concern for atelectasis-clinically not concerning for pneumonia. No respiratory symptoms nor cough.
Continue with ICS.
DW GI
Discussed with daughter at bedside
DVT PPX - lovenox sq
Total time spent on today's encounter was 52 minutes which included time spent in counseling the patient/family regarding diagnosis and treatment plan as listed above, goals of care, and symptom management. Case was discussed with nursing staff,
specialists, and care coordinators/case management. All labs and imaging personally reviewed by me. Remainder the time spent in detailed review of previous records, lab data, imaging, and other medical provider documentation.
Anticipated Discharge: > 48 hours
Subjective/Interval History
-
Date of Service: July 12, 2025
Pain persists in right upper quadrant abdomen but less intense. No nausea vomiting today.
Denies any shortness of breath at rest. She is sitting in the chair comfortable.
No fever or chills.
Objective Data
-
Labs:
Laboratory Results
07/12/25
06:38
WBC 12.4 H
Hgb 12.3
Hct 36.9 L
Plt Count 264
PT 16.0 H
INR 1.25
Sodium 138
Potassium 3.7
Chloride 104
Carbon Dioxide 26
BUN 15
Creatinine 0.6
Glucose 146 H
Calcium 8.0 L
Total Bilirubin 0.9
AST 40 H
ALT 38 H
Alkaline Phosphatase 307 H
Vital Signs:
Vital Signs
Temp Pulse Resp BP Pulse Ox
97.5 F 64 18 124/57 93
07/12/25 07:00 07/12/25 08:09 07/12/25 07:00 07/12/25 08:09 07/12/25 07:00
I&O
07/11/25 07/12/25 07/13/25
06:59 06:59 06:59
Intake Total 480 / 480 570 / 570
Output Total 1013 / 1013
Balance 480 / 480 -443 / -443
Physical Exam
-
General: No Apparent Distress
Respiratory: Crackles (Few bibasilar crackles) and Non Labored Respirations; Negative Wheezes or Accessory Resp Muscle Use
Cardiac: Regular Rhythm and S1/S2
GI: Soft, Nondistended, Normal Bowel Sounds and Tender (Right upper quadrant)
Neuro: AO x 3
Psych: Calm; Negative Confused
Data Reviewed
-
Labs: Labs Reviewed by me
--- NOTE | 2025-07-12 13:30 | PN.CDI ---
CDI
- -
CDI:
Physician Documentation Request
Admit Date: 07/10/25 19:21
Dear Doctor Jonnathan,
Patient underwent Laparoscopic cholecystectomy with cholangiogram for Gangrenous perforated cholecystitis.
07/11 OR findings note 'Markedly distended and inflamed gallbladder with thick surrounding adhesions, localized perforation of the gallbladder identified with lyn pus and spillage in the right upper quadrant which was suctioned up and cultured'
Please further specify:
Peritonitis is/was present
Peritonitis not present
other
Use of terms such as suspected, likely, concern for, or probable (associated with a specific diagnosis that is being evaluated, monitored, or treated as if it exists) are acceptable and can be coded in the inpatient setting, when documented at the
time of discharge.
Thank you,
Dania Rascon RN, BSN
CDI Specialist
tiger text
Please use your independent medical judgment in providing your response.
[2025-07-12] MEDS: CRESTOR 5 MG PO (17:08)
[2025-07-12] MEDS: ZOFRAN 4 MG IV (21:11)
[2025-07-12] MEDS: DILAUDID 0.5 MG IV (21:12)
[2025-07-13] VITALS (7 sets, daily range): BP systolic 110–133; BP diastolic 56–65; PULSE 60; O2SAT 92
[2025-07-13] MEDS: DILAUDID 0.5 MG IV (04:08)
[2025-07-13] MEDS: SENOKOT-S 1 TABLET PO (04:17)
[2025-07-13] MEDS: UNASYN IV ×4 (05:00→22:59)
[2025-07-13 07:01] LABS: Hematocrit 35.0 % (37.0-47.0); Hemoglobin 11.8 g/dL (12.0-16.0); Mean Corp Hgb Conc. 33.7 g/dL (33.0-37.0); Mean Corpuscular Volume 92.1 fL (81.0-99.0); Platelet Count 275 10^3/uL (130-400); Red Cell Dist. Width 12.9 % (11.5-14.5)
[2025-07-13 07:25] LABS: ALT (SGPT) 42 U/L (0-35); AST (SGOT) 39 U/L (14-36); Albumin 2.8 g/dl (3.5-5.0); Alkaline Phosphatase 260 U/L (38-126); Blood Urea Nitrogen 21 mg/dl (7-17); Calcium 8.1 mg/dl (8.4-10.2); Carbon Dioxide 28 mmol/L (22-30); Chloride 105 mmol/L (98-107); Estimated Creatinine Clearance 77 ml/min; Glucose 147 mg/dl (70-99); Potassium 4.1 mmol/L (3.5-5.1); Sodium 138 mmol/L (135-145); Total Protein 5.4 g/dl (6.3-8.2); eGFR > 60.00
[2025-07-13] MEDS: TOPROL XL 12.5 MG PO ×2 (07:53→19:48)
[2025-07-13] MEDS: TYLENOL 650 MG PO ×2 (08:03→22:44)
--- NOTE | 2025-07-13 09:54 | W.PN.HOSP.TC ---
Addendum entered and electronically signed by Asaf [place] MD 07/15/25 08:04:
No evidence of UTI
Original Note:
Today's Communication/Plan
-
Continue with IV Unasyn
Start on oral pain regimen
Bowel regimen for constipation
PT OT eval
DC planning
Assessment / Plan
Assessment / Plan
IMPRESSION:
Generally healthy 80-year-old female here with fatigue and fever to 101.3 at home. Workup in the ED shows leukocytosis to 17.9 slight elevation in total bilirubin to 2.0 and alk phos 223. She had a chest x-ray which shows mild bibasilar opacities
felt to be atelectasis. She has no respiratory symptoms and is satting 100% on room air. On examination she did have right upper quadrant tenderness to palpation. She denies typical urinary symptoms at home and she has no findings on skin to
suggest cellulitis or joints to suggest joint infection. UA is positive at this time.
PLAN:
Fever fatigue and leukocytosis
Also had a right upper quadrant pain and tenderness with ultrasound findings raising concern for acute cholecystitis with a gallbladder wall thickening, pericholecystic edema, gallbladder sludge, and gallstone in the neck of the gallbladder.
Abnormal LFTs noted.
Clinical concern for acute cholecytsitis.
Status post lap cholecystectomy yesterday-findings showed gangrenous gallbladder with perforation. Specimens were collected. Continue with penicillin with improving white count.
Choledocholithiasis noted on IOC
- Status post ERCP 07/12-had a bile duct stones removed and has plastic stent in place.
- Status post EUS 07/12-pancreatic cyst noted-GI recommends to proceed further with MRI abdomen with contrast for its evaluation.
- Currently on clear liquids-continue to advance diet per GI
- Start on laxatives for constipation.
Pancreatic head hypoechoic mass-endoscopic ultrasound shows a cyst-MRI with gadolinium pending.
History of SVT-continue metoprolol
Bilateral basal crackles with chest x-ray raising concern for atelectasis-clinically not concerning for pneumonia. No respiratory symptoms nor cough.
Resolved. Not hypoxic.
DVT PPX - lovenox sq
If continued improvement will plan on discharge in the next 24 hours.
Consult PT OT.
Anticipated Discharge: 24 - 48 hours
Subjective/Interval History
-
Date of Service: July 13, 2025
Improved abdominal pain compared to preadmission. Few twinges of pain in the right upper quadrant on and off.
No nausea vomiting. Tolerating clear liquid diet. Denies shortness of breath. No fever or chills. Complains of constipation.
Objective Data
-
Labs:
Laboratory Results
07/13/25
06:01
WBC 10.9 H
Hgb 11.8 L
Hct 35.0 L
Plt Count 275
Sodium 138
Potassium 4.1
Chloride 105
Carbon Dioxide 28
BUN 21 H
Creatinine 0.6
Glucose 147 H
Calcium 8.1 L
Total Bilirubin 0.5
AST 39 H
ALT 42 H
Alkaline Phosphatase 260 H
Vital Signs:
Vital Signs
Temp Pulse Resp BP Pulse Ox
97.7 F 63 18 127/65 98
07/13/25 08:12 07/13/25 08:12 07/13/25 08:12 07/13/25 08:12 07/13/25 08:12
I&O
07/12/25 07/13/25 07/14/25
06:59 06:59 06:59
Intake Total 570 / 570 1590 / 1590
Output Total 1013 / 1013 255 / 255
Balance -443 / -443 1335 / 1335
Physical Exam
-
General: Comfortable
Respiratory: Non Labored Respirations; Negative Wheezes, Crackles or Accessory Resp Muscle Use
Cardiac: Regular Rhythm and S1/S2; Negative Tachycardic
GI: Soft, Nondistended, Normal Bowel Sounds and Tender (Mild discomfort in the right upper quadrant)
Neuro: AO x 3
Psych: Calm; Negative Confused
Data Reviewed
-
Labs: Labs Reviewed by me
[2025-07-13] MEDS: VALIUM INJECTION 2.5 MG IV (10:55)
--- NOTE | 2025-07-13 14:50 | W.PN.GS2 ---
Today's Communication / Plan
-
Continue IV antibiotics x 7 days, E. coli is pansensitive, can de-escalate antibiotics -will defer to primary.
Pain control.
Out of bed and ambulate as able.
Diet per GI, but no issues with a regular diet from a general surgery perspective.
Continue to trend CMP and CBC.
Continue THAIS to bulb suction. She will be discharged home with this drain and will likely have it pulled in the office in 1 to 2 weeks, appreciate drain teaching by nursing.
Discharge instructions updated, patient to follow-up with me in 1 to 2 weeks. Patient to have a follow-up endoscopy in roughly 6 weeks with GI for stent removal.
Begin dispo planning. General surgery will follow peripherally, please call with any questions or concerns.
Assessment / Plan
-
This is a 80-year-old female postoperative day 2 from a laparoscopic cholecystectomy with cholangiogram and suture ligation of the cystic duct for acute perforated cholecystitis with right upper quadrant abscess and significant choledocholithiasis,
now status post ERCP sphincterotomy, removal of choledocholithiasis and stent placement.
Continue IV antibiotics x 7 days, E. coli is pansensitive, can de-escalate antibiotics -will defer to primary.
Pain control.
Out of bed and ambulate as able.
Diet per GI, but no issues with a regular diet from a general surgery perspective.
Continue to trend CMP and CBC.
Continue THAIS to bulb suction. She will be discharged home with this drain and will likely have it pulled in the office in 1 to 2 weeks, appreciate drain teaching by nursing.
Discharge instructions updated, patient to follow-up with me in 1 to 2 weeks. Patient to have a follow-up endoscopy in roughly 6 weeks with GI for stent removal.
Begin dispo planning. General surgery will follow peripherally, please call with any questions or concerns.
Time Spent
Total Time Spent with Patient (in minutes): 20
Subjective Data
-
Date of Service: July 13, 2025
Interval Events:
No acute events overnight. Patient underwent successful ERCP with sphincterotomy, removal of choledocholithiasis and stent placement. I reviewed the ERCP images which showed contrast opacifying the cystic duct but no clear leak communicating with
the drain. Slept well. Pain Controlled. Denies Nausea/Vomiting, +bowel function. Tolerating diet.
Objective Data
-
Intake and Output
07/12/25 07/13/25 07/14/25
06:59 06:59 06:59
Intake Total 570 / 570 1590 / 1590
Output Total 1013 / 1013 255 / 255
Balance -443 / -443 1335 / 1335
Intake:
Oral fluids 400 / 400
IV fluids (Total) 450 / 450 1090 / 1090
LR 50 / 50
Normosol 150 / 150
IV piggybacks 120 / 120 100 / 100
Output:
Drain Output (Total)
Right Lower Abdomen John-
Epps
Urine, Voided 950 / 950 225 / 225
Other:
Number of approximated LARGE 1 3
amounts of urine
Vital Signs
Temp Pulse Resp BP Pulse Ox
98.1 F 57 16 110/58 91
07/13/25 10:48 07/13/25 10:48 07/13/25 10:48 07/13/25 10:48 07/13/25 10:48
Lab Results
07/13/25 06:01
07/13/25 06:01
Calcium 8.1 mg/dl (8.4-10.2) L 07/13/25 06:01
Total Bilirubin 0.5 mg/dl (0.2-1.3) 07/13/25 06:01
Direct Bilirubin 0.5 mg/dl (0.0-0.4) H 07/11/25 06:52
AST 39 U/L (14-36) H 07/13/25 06:01
ALT 42 U/L (0-35) H 07/13/25 06:01
Alkaline Phosphatase 260 U/L (38-126) H 07/13/25 06:01
Total Protein 5.4 g/dl (6.3-8.2) L 07/13/25 06:
Albumin 2.8 g/dl (3.5-5.0) L 07/13/25 06:01
Physical Exam
-
GENERAL/NEURO: Awake, Alert, no distress
CHEST: Unlabored breathing on RA
ABDOMEN: Soft, Non-Tender, Non-Distended, incisions clean dry and intact. THAIS with scant serous sanguinous output.
Patient has a marte catheter: No
Patient has a central line: No
[2025-07-13] MEDS: LR 1000 IV (15:40)
--- NOTE | 2025-07-13 16:21 | CM ---
Postop Lap Choly.
PT recommended VN .
Offered VN to patient she said she will talk with dgt who she will be staying with at dc.
Weaned off oxygen.
PLAN Home with VN if pt request
[2025-07-13] MEDS: MIRALAX 17 GRAMS PO (16:35)
[2025-07-13] MEDS: ROXICODONE 5 MG PO ×2 (16:40→22:44)
[2025-07-13] MEDS: CRESTOR 5 MG PO (17:23)
--- NOTE | 2025-07-13 17:38 | W.PN.GI.CBS2 ---
Today's Communication / Plan
-
Needs repeat EGD with stent removal with Dr. Vallejo in 6 weeks
needs surveillance of pancreatic cyst and wants to follow-up with Dr. Vallejo for this also
Assessment / Plan
-
Pt is a 80yo with hx SVT, hypercholesterolemia, colon polyp, GERD, constipation, , tonsillectomy presents to ER 07/10 with fatigue, fever, decreased appetite and RUQ pain. Labs on admission noted with elevated WBC 17,900, bili 2, AST 46,
ALT 31, alk phos 203, lipase 45. Us completed on admission with acute cholecystitis. 8 mm CBD and hypoechoic 1.5 cm mass in panc head. Pt went for lap emperatriz today and drainage of intraabdominal abscess. cholangiogram with +
choledocholithiasis asked to see for ERCP. In review with patient and family she had episode of recent fatigue. She thought it may just be a viral issues but also had some increased GERD. She now started with fever and worsening fatigue this week.
No hx pancreatic issues or known pancreatic cysts in past. She admits to some abdominal pain on admission with palpation but some worsening pain post-op. She also admits to constipation. No hx EGD and prior colonoscopy 1-2 years ago with
polyps. No anticoagulation use but + daily NSAID use for arthritis prior to admission.
-extensive choledocholithiasis with biliary obstruction
-s/p lap emperatriz with drainage of intraabdominal abscess
-US with 1.5cm hypoechoic mass in panc head
-leukocytosis
-recent fatigue prior to admission
other med problems:
-hx SVT on Metoprolol
-arthritis on daily NSAIDs
- hypercholesterolemia
-colon polyp
- GERD
- constipation
-
-tonsillectomy
-father with hx emperatriz and materal uncle with panc CA
PLAN:
Status post laparoscopic cholecystectomy for gangrenous perforated cholecystitis right upper quadrant abscess drainage 07/08/2025
Status post ERCP 07/12/2025 with sphincterotomy and balloon extraction with stone removal and stent placement
Status post EUS 07/12/2025 for pancreatic cyst no mass noted, cyst is not communicating with PD
She also had an MRI with MRCP 07/13/2025 which shows a 4 mm pancreatic cyst no worrisome features no solid mass
She needs follow-up with Dr. Vallejo in 6 weeks for EGD and stent removal
Postop care per surgery input noted
She wants to follow-up with Dr. Vallejo and will travel from [place] to visit her daughter who is ER nurse at and time her appointments then
GI will sign off and will be available as needed
Subjective
Subjective
Date of Service: July 13, 2025
She has mild pain at the incision sites
WBC count trending down on antibiotics
Objective
Data Reviewed
Laboratory Data:
Laboratory Results
07/13/25 06:01
07/13/25 06:01
Laboratory Results
PT 16.0 Sec (11.4-14.6) H 07/12/25 06:38
INR 1.25 07/12/25 06:38
Total Bilirubin 0.5 mg/dl (0.2-1.3) 07/13/25 06:01
AST 39 U/L (14-36) H 07/13/25 06:01
ALT 42 U/L (0-35) H 07/13/25 06:01
Alkaline Phosphatase 260 U/L (38-126) H 07/13/25 06:01
Lipase 45 U/L (23-300) 07/10/25 14:54
IMPRESSION:
4 mm nonenhancing cystic focus at the posterior margin of the pancreatic head. No other suspicious pancreatic parenchymal mass by MRI.
Cholecystectomy.
Mild common bile duct dilatation with a common bile duct stent in place. No evidence for choledocholithiasis.
Small bilateral pleural effusions.
Vital Signs and I&O:
Vital Signs
Temp Pulse Resp BP Pulse Ox
97.7 F 63 20 128/64 92
07/13/25 15:00 07/13/25 15:00 07/13/25 15:00 07/13/25 15:00 07/13/25 15:00
I&O
07/12/25 07/13/25 07/14/25
06:59 06:59 06:59
Intake Total 570 / 570 1590 / 1590
Output Total 1013 / 1013 255 / 255
Balance -443 / -443 1335 / 1335
Physical Exam
Physical Exam
Cardiology: Normal Sinus Rhythm
Pulmonary: Clear
GI: Soft, Non Distended, Tender (Mild right upper quadrant tenderness), Normal Bowel Sounds and Other (Has THAIS drain)
--- NOTE | 2025-07-13 22:55 | PTCARENOTE ---
pt walked the halls w/ RW. pt reported that she will be staying at her daughter's house and there are a lot of steps. pt is asking if she can try steps here. pt is being followed by physical therapy. will f/u in am
[2025-07-14] MEDS: ROXICODONE 5 MG PO ×3 (03:43→14:19)
[2025-07-14 03:49] VITALS: BP 119/57
[2025-07-14] MEDS: UNASYN IV ×2 (05:22→11:46)
[2025-07-14 06:54] LABS: Hematocrit 37.4 % (37.0-47.0); Hemoglobin 12.2 g/dL (12.0-16.0); Mean Corp Hgb Conc. 32.6 g/dL (33.0-37.0); Mean Corpuscular Volume 94.7 fL (81.0-99.0); Platelet Count 319 10^3/uL (130-400); Red Cell Dist. Width 13.0 % (11.5-14.5)
[2025-07-14 06:59] LABS: ALT (SGPT) 44 U/L (0-35); AST (SGOT) 43 U/L (14-36); Albumin 2.7 g/dl (3.5-5.0); Alkaline Phosphatase 229 U/L (38-126); Blood Urea Nitrogen 16 mg/dl (7-17); Calcium 7.9 mg/dl (8.4-10.2); Carbon Dioxide 33 mmol/L (22-30); Chloride 104 mmol/L (98-107); Estimated Creatinine Clearance 77 ml/min; Glucose 118 mg/dl (70-99); Potassium 3.7 mmol/L (3.5-5.1); Sodium 138 mmol/L (135-145); Total Protein 5.3 g/dl (6.3-8.2); eGFR > 60.00
[2025-07-14 08:03] VITALS: BP 118/60
[2025-07-14] MEDS: TOPROL XL 12.5 MG PO (09:01)
--- NOTE | 2025-07-14 10:40 | VNURNOTE ---
Home Health Liaison met with patient at bedside to discuss [facility] nurse/therapy, visits, schedule and homebound status. Patient is agreeable and understands that visits at home will be 2-3 x per week to assess and teach medical and drain management.
Patient is aware that [facility] will contact them for start of care in 1-2 days after discharge from .
[facility] referral completed in [facility].
--- NOTE | 2025-07-14 11:04 | W.PN.UPDATE ---
Update Note
Progress Note Update
Patient is in need of a walker to prevent falls due to unsteady gait. Patient needs a commode due to confinement to one level of the home environment and there is no toilet on the same level.
Patient is in need of a walker to prevent falls due to unsteady gait.
[2025-07-14 11:26] VITALS: BP 104/68
[2025-07-14 11:59] VITALS: BP 113/56; PULSE 76; O2SAT 99
--- NOTE | 2025-07-14 12:17 | CM ---
entered order for discharge.
Postop Lap Choly with THAIS.
PT recommended VN .
Pt and dgt requested [facility] Rubi set up referral . wrote scripts for walker and commode . PT and OT TT of requests for DME.
Rubi notified to visit at dgt address is [address] [place] [address] , [place]
t wuill drive her home.
PLAN Home with [facility]
--- NOTE | 2025-07-14 13:43 | PN.CDI ---
CDI
- -
CDI:
Physician Documentation Request
Admit Date: 07/10/25 19:21
Dear Doctor Memo,
Please review the following and provide your response in the progress notes.
Clinical Indicators:
The diagnosis of UTI was documented on 07/10, but is not consistently noted in subsequent documentation.
Urine culture results: Mixed kamila, probable contamination.
UA
07/10/25
17:50
Urine Color [place]
Urine Clarity Slightly cloudy
Ur Occult Blood Reflex 4+ A
Leukocyte Esterase Rfl 2+ A
Urine WBC (Reflex) 21-25 A
Urine Bacteria (Reflex) Moderate A
Please clarify the following:
____ - UTI was present
____ - UTI was ruled out
____ - Other
Use of terms such as suspected, likely, concern for, or probable (associated with a specific diagnosis that is being evaluated, monitored, or treated as if it exists) are acceptable and can be coded in the inpatient setting, when documented at the
time of discharge.
Thank you,
Dania Rascon RN, BSN
CDI Specialist
tiger text
Please use your independent medical judgment in providing your response.
[2025-07-14] MEDS: FLUZONE HIGH-DOSE 2025-26 0.5 ML IM (13:48)
--- NOTE | 2025-07-14 14:56 | W.DCSUMMARY ---
Discharge Summary
Discharge Data
Date of Admission: 07/10/25
Date of Discharge: 07/14/25
-
Pending Results: No
Hospital Course
Primary diagnosis:
Acute gangrenous perforated cholecystitis status post laparoscopic cholecystectomy
Choledocholithiasis status post ERCP, stone removal, and biliary stent placement
Pancreatic cyst
Secondary diagnosis:
History of supraventricular tachycardia
Hospital course:
Patient was visiting her daughter here and was on. She is from [place]. She presented to the hospital with reduced appetite, fatigue and right mid back pain which progressed over the last few days with associated fever. Her history, exam,
imaging and blood work were all consistent with acute cholecystitis and went to the OR-laparoscopic cholecystectomy with IOC findings were gangrenous perforated cholecystitis, right upper quadrant abscess and choledocholithiasis. She had
cholecystectomy and fluid cultures drawn. She was on Unasyn from admission.
GI got involved-had ERCP with removal of stones and a biliary stent was placed which will be removed in [address] abdominal ultrasound showed hypoechoic mass of 1.5 cm in the region of pancreatic head. She also endoscopic ultrasound and
MRI of the abdomen showed 4 mm nonenhancing cystic foci at the posterior margin of the pancreatic head and no other suspicious pancreatic parenchymal mass were noted.
Or culture showed E. coli and coagulase-negative Staph aureus. She did well with normalization of white count. Her bilirubin normalized from 2.0. LFTs were improving at the time of discharge. She was advised to hold her statin still LFTs are
normal.
Today she was tolerating diet without nausea or vomiting. No further fevers. Much improved abdominal pain. Abdomen is soft. Right abdominal THAIS drain was in place which will be left in situ till seen by general surgery in the office.
On admission she had a bilateral basilar crackles which was felt to be atelectasis. She briefly required oxygen via nasal cannula and postoperatively her chest was clear and she had no requirement of oxygen. Today she is afebrile, pulse 79, blood
pressure 104/68.
[place] stable for discharge home. She was reviewed by PT OT who recommended home health. We and care was as well arranged for her.
She plans to stay here and follow-up with the doctors here than in her hometown in [place].
Portions of this chart may have been created with voice recognition software. Occasional wrong word or 'sound alike' substitutions may have occurred due to the inherent limitations of voice recognition software.
Consultants on board:
Interventional GI-Rashid William
GI - Ashleigh Ryder
General Surgery-Werner Gonzalez
Discharge Plan
-
Patient Disposition: Home with Home Care
Discharge Diagnosis/Procedures: Cholecystitis with the gangrenous gallbladder and focal perforation status post lap cholecystectomy; choledocholithiasis s/p ERCP and biliary stent placement
Diet: As tolerated and Regular
Activity: No strenuous activity
Driving Restrictions: Not until seen by your Dr
Bathing Restrictions: OK to Shower
Blood Work: CMP in one week - slip given
Other Services: VN, PT and OT
Activity Restrictions/Additional Instructions:
Instructions following Laparoscopic Cholecystectomy
Please call [phone] if you have any questions or concerns after your surgery.
Wound Care:
Your incisions are covered with skin glue which will come off on it�s own in 5-10 days.
It is ok to shower the day after your surgery. Do not scrub the incisions, let soap and water wash over them and pat dry.
� Bruising around your incisions is normal.
� Using ice packs will help minimize this swelling.
� No swimming or soaking incisions for 1 week.
� Your stitches will dissolve and do not need to be removed.
Urinary retention:
If you are unable to urinate 6-8 hours after your surgery, please call [phone] to discuss further management.
Activity:
No heavy lifting more than 15 pounds for the next 3 weeks, then you may gradually lift heavier objects as tolerated by discomfort. Otherwise activity as tolerated by your comfort level.
Pain Management:
Use Tylenol, ibuprofen and ice packs to treat your pain.
� You may take 650 milligrams of Tylenol (Max 3 grams per day) every 6 hours, and 600 mg of ibuprofen also every 6 hours. (you can alternate them every 3 hours)
� You may use an ice pack to your incision as needed.
� If you still have pain not controlled by these measures, take your prescription pain medication as prescribed.
Medications:
You may resume your home medications.
Bowel Medications:
Prescription pain medication can make you constipated. If you take this medication, also take colace 100 mg twice daily (this is over the counter). If this is not sufficient, you may take Miralax (polyethylene glycol) to help move your bowels.
Diet:
After your procedure, there are no dietary restrictions. You may notice loose stools for up to 4 weeks after surgery with fatty meals, if this is the case you may have to adjust your diet as needed.
Driving restrictions:
No driving if you are taking prescription pain medication or if you think your normal reaction time and attentiveness has been slowed by your surgery.
Things to Look out for:
Worsening Abdominal pain, redness or drainage from incision
Call Doctor for:
Please call if you notice worsening redness or drainage from incision(s) lasting longer than 5 days after your surgery, any foul-smelling drainage from the incision, pain not controlled by pain medications, persistent nausea and vomiting, or for any
fevers greater than 101.3 F. The number for questions/concerns is [phone]
Follow-up:
Follow-up appointment will be scheduled with your surgeon in 3-4 weeks. Please call prior to your appointment if you have any questions or concerns. [phone]
THAIS DRAIN CARE INSTRUCTIONS
General Information:
Drains help to keep fluid from collecting by removing the extra blood and fluid from under the skin. A drain is temporary. It stays in place until the drainage has slowed down or stopped. Your doctor or nurse will decide when each drain should be
removed: This is usually after each drain has 30cc or less in 24 hours for 2 days in a row. When this happens, you should call the [facility] to schedule an appointment with the nurses to have it/them removed. This is usually not painful
and only takes a few seconds.
How do I care for the drains at home?
Pin your drains to your clothing by using a safety pin through the plastic loop on the top of the bulb. If the drain is not attached to your clothing, it may pull out from under your skin. Also, a drain usually feels more comfortable when it�s
attached. To care for the drain at home, you will have to empty the drain, ``strip�� the drain tubing, and change the dressing if applicable. See the following pages for instructions on how to do this.
What problems may I have with my drain?
� The bulb is not compressed- The bulb may not be squeezed tightly enough, the plug may not be closed securely, or the tube has slipped out a bit and is leaking. Follow the instructions on how to empty the drain.
If the bulb remains expanded, then notify your doctor or nurse during business hours.
� No drainage or sudden decrease in amount of drainage- This is usually due to clots in the drain. Follow the instructions on how to strip the drain tubing.
� The tube accidentally falls out- If this happens, place a dry gauze dressing over the drain site and notify your doctor or nurse during business hours.
� Increased redness, swelling, or heat around the tube insertion site- This may be a sign of infection. Take your temperature: if it is higher than 101F or 38.8C, call your doctor or nurse immediately. Otherwise, notify your doctor or nurse during
business hours and keep the dressing clean and dry.
Post-Surgical Drain Care:
After surgery, you will have one or two drains, called a John-Epps (THAIS) drain, placed near the incision. This device collects fluid, under suction, from your surgical area. The drain promotes healing and recovery, and reduces the chance of
infection. The drain will be in place until the drainage slows enough for your body to reabsorb fluid on its own. While you are hospitalized the nursing staff will care for the drain and teach you to continue to do so at home.
How to Empty Your THAIS Drain
Note: Wash your hands thoroughly before emptying your drain(s).
� Have the plastic measuring cup from the hospital ready to collect and measure the drainage. Please measure the output at the same two times every 24 hours and record the amount.
� Unpin the drain from your clothing.
Open the top of the drain. Turn the drain upside down and squeeze the contents of the bulb into the measuring cup. Be sure to empty the bulb as completely as possible. Flush the contents in the toilet.
� Use the drain output log chart to record the amount of drainage twice a day or any time the bulb is full. Record the total for 24 hours for each drain you have.
� If you have more than one drain, remember to record the drainage from each drain separately.
� To prevent infection, do not let the stopper or top of the bottle touch the measuring cup or any other surface.
� Use one hand to squeeze all of the air from the drain. With the drain still squeezed, use your other hand to replace the top. This creates the suction necessary to remove the fluids from your body.
� Pin the drain back on your clothing to avoid pulling it out accidently.
� Wash your hands again. Remember to wash your hands before and after the procedure to reduce the risk of infection.
Stripping the Tube
Often the tube may become blocked with products of healing or clot. If you do not have drainage, then:
� Hold the tube near where it is inserted in to the skin with your one hand.
� Use the other hand to hold a pencil and gently squeeze the tubing with the pencil while moving it down toward the drain away from your skin. This forces the more sold material into the bulb for better drainage.
� Repeat as necessary to start the draining again.
Removal of the Tube
� The tube may be removed once a single tube output is less than 30cc (1 oz.) for 24 hours. Please call the office to arrange a time to come in to have the drain removed.
� Please call the office [phone] if the output becomes thicker or has a bad odor or if you have any questions or concerns
Referrals:
Rashid Vallejo MD [Active, Gastroenterology] - in six weeks
Referral Note: for removal of biliary stent
Werner De Santiago MD [Active, Surgical] - in two to four weeks
Prescriptions:
New
amoxicillin-pot clavulanate 875-125 mg tablet
1 tab PO BID Qty: 14 0RF
acetaminophen 325 mg Tablet
650 mg PO Q6HPRN PRN (Reason: mild pain/ fever>100.5F) Qty: 1 0RF
polyethylene glycol 3350 17 gram Powder In Packet
17 g PO DAILYPRN PRN (Reason: constipation) Qty: 14 0RF
sennosides-docusate sodium [Senna Plus] 8.6-50 mg Tablet
1 tab PO BIDPRN PRN (Reason: constipation) Qty: 14 0RF
oxycodone 5 mg Tablet
5 mg PO Q4HPRN PRN (Reason: moderate pain) Qty: 20 0RF
Continued
metoprolol succinate 25 mg tablet extended release 24 hr
12.5 mg PO BID
Held
rosuvastatin 5 mg tablet
5 mg PO HS
Hold Instructions: Resume on 07/21/25. Till your liver function tests returns to normal
Discharge Orders:
Discharge Patient (As Directed); Ordered 07/14/25
Ordered By: Asaf Hampton
Discharge Date and Time
Print Language: POLISH
== END 2025-07-14 16:21 | disposition home health service (06) | DRG 417 ==
LOC: 4 EAST ACU 19:21
PROVIDERS: Emergency Medicine; Internal Medicine Gastroenterology; Nurse Practitioner; Nurse Practitioner Adult Health; Radiology Diagnostic Radiology; ADMITTING PHYSICIAN Internal Medicine; ATTENDING PHYSICIAN Internal Medicine; CONSULT PHYSICIAN Internal Medicine Gastroenterology; EMERGENCY PHYSICIAN Emergency Medicine; OTHER PHYSICIAN Surgery
PROC: 0FB44ZZ Excision of Gallbladder, Percutaneous Endoscopic Approach (ICD-10-PCS; 2025-07-11)
PROC: BF101ZZ Fluoroscopy of Bile Ducts using Low Osmolar Contrast (ICD-10-PCS; 2025-07-11)
PROC: 0F768DZ Dilation of Left Hepatic Duct with Intraluminal Device, Via Natural or Artificial Opening Endoscopic (ICD-10-PCS; 2025-07-12)
PROC: BF47ZZZ Ultrasonography of Pancreas (ICD-10-PCS; 2025-07-12)
PROC: BF40ZZZ Ultrasonography of Bile Ducts (ICD-10-PCS; 2025-07-12)
PROC: 0FC98ZZ Extirpation of Matter from Common Bile Duct, Via Natural or Artificial Opening Endoscopic (ICD-10-PCS; 2025-07-12)
DX: K80.63 Calculus of gallbladder and bile duct with acute cholecystitis with obstruction (principal); K65.8 Other peritonitis; I47.10 Supraventricular tachycardia, unspecified; K82.A2 Perforation of gallbladder in cholecystitis; K86.2 Cyst of pancreas; K82.A1 Gangrene of gallbladder in cholecystitis; E78.00 Pure hypercholesterolemia, unspecified; K21.9 Gastro-esophageal reflux disease without esophagitis; K59.00 Constipation, unspecified; B96.20 Unspecified Escherichia coli [E. coli] as the cause of diseases classified elsewhere; Z11.52 Encounter for screening for COVID-19; Z79.899 Other long term (current) drug therapy; Z86.0100 Personal history of colon polyps, unspecified; Z87.891 Personal history of nicotine dependence
CPT/HCPCS: 71046; 74183; 74300; 74330; 76000; 76700; 80053; 81003; 81015; 82248; 83690; 85025; 85027; 85610; 87070; 87071; 87075; 87086; 87186; 87205; 87502; 87811; 88304; 93005; 96360; 97116; 97162; 97167; 97530; 97535; 99285; A4300; A9575; C1769; C2617

== ENCOUNTER 2025-08-23 06:14 | Day surgery (SDC) | payer MEDICARE, OTHER, SELFPAY ==
[2025-08-23 12:51] VITALS: BMI 30.7
[2025-08-23 12:53] VITALS: BP 122/63
[2025-08-23 14:17] VITALS: BP 107/57
[2025-08-23 14:30] VITALS: BP 129/64
[2025-08-23 14:45] VITALS: BP 127/70
== END 2025-08-23 15:15 | disposition home or self-care (01) ==
LOC: SDS 06:14
PROVIDERS: ATTENDING PHYSICIAN Internal Medicine Gastroenterology
DX: Z46.59 Encounter for fitting and adjustment of other gastrointestinal appliance and device (principal)
CPT/HCPCS: 43247